=== PATIENT | female | born 1995 | race Caucasian/White ===

== ENCOUNTER 2016-09-30 21:11 | Emergency (ER) | payer OTHER ==
[~2016-09-30] VITALS: Ht 170.2 cm; Wt 60.0 kg
[2016-09-30 21:21] VITALS: TEMP 36.5; Ht 170.2 cm; Wt 60.0 kg
--- NOTE | 2016-09-30 21:59 | EMERGENCY ROOM VISIT NOTE ---
History Report prepared by Flory: Jb Caballero Under the Supervision of: Dr. Nedra Disla M.D. First contact with patient: 21:47 Chief Complaint: ALCOHOL OVERDOSE Stated Complaint: ETOH Nursing Triage Summary: DRINKING THIS AFTERNOON History of Present Illness This HPI is limited due to the alcohol intoxication of the patient. The patient is a 21 year old female who presents to the Emergency Room due to alcohol intoxication. She does admit to being at a green party and consuming alcohol, but denies any further drug use. The patient was brought to the emergency department via emergency services. She states that she did not call for the ambulance, but it showed up when she was walking back to her apartment form downw. She denies vomiting, but has vomit in her hair on exam. She denies any medical problems. Source of History: patient History Limited By: intoxication Position: other (Global) Quality: other (Alcohol ) Review of Systems HPI limited due to alcohol intoxication of the patient. Past Medical & Surgical Unobtainable secondary to intoxication. Family History Unobtainable secondary to intoxication. Social History Smoking Status: Never Smoker Marital Status: single Housing Status: lives with roommate Occupation Status: [employer] student Current/Historical Medications No Active Prescriptions or Reported Meds Allergies Coded Allergies: No Known Allergies (Unverified , 09/30/16) Physical Exam Vital Signs Date Time Temp Pulse Resp B/P Pulse Ox O2 Delivery O2 Flow Rate FiO2 10/01/16 04:17 98 18 105/59 98 10/01/16 02:49 95 18 98/61 98 Room Air 10/01/16 02:12 91 16 99/54 99 Room Air 10/01/16 01:03 90 10/01/16 00:42 92 16 96/48 95 Room Air 09/30/16 23:16 94 18 111/75 97 Room Air 09/30/16 22:37 94 20 98 Room Air 09/30/16 21:59 86 09/30/16 21:21 36.5 86 20 104/66 100 Room Air Physical Exam Vital signs reviewed. General: Odor of EtOH in the breath, disheveled 21-year-old female. No signs of trauma. Smelled like vomit on exam. HEENT: Mild scleral injection bilaterally, PERRLA, neck supple, dry mucous membranes. Cardiovascular: Regular rate and rhythm, no extra sounds. Pulmonary: Clear to auscultation bilaterally, normal work of breathing. Abdomen: Soft, nontender, nondistended, positive bowel sounds. Musculoskeletal: Upper and lower extremities atraumatic, no peripheral edema Skin: Warm, dry, no rash. Atraumatic. Neurologic: Patient is currently minimally verbal. Medical Decision & Procedures Laboratory Results Test 09/30/16 22:15 Ethyl Alcohol mg/dL 236.0 mg/dl (0-3) Laboratory results per my review. ED Course 2150: Past medical records reviewed. The patient was evaluated in room B4. A complete history and physical examination was performed. 2338: I reevaluated the patient at this time, she was resting comfortably in bed. 0043: I checked on the patient at this time, she was sleeping in bed. 0300: The patient is safe to go home on her own in a cab. The patient will be discharged. Medical Decision Differential diagnosis: Etiologies such as alcohol intoxication, toxicologic, infection, hypoglycemia, electrolyte abnormalities, cardiac sources, intracerebral event, neurologic, as well as others were entertained. This patient was evaluated and appeared to be in no significant distress. Physical examination is fairly unrevealing. The patient was placed on the senior quality engineer with aspiration precautions maintained. Laboratory work reveals a significant alcohol intoxication with an alcohol level of 236. The patient was observed until she reached a more sober state. She is released to the care of a friend. She will follow-up with [facility] as instructed and return to the ER for worsening of symptoms or any medical concerns. Impression Primary Impression: Alcohol use with intoxication Scribe Attestation The scribe's documentation has been prepared under my direction and personally reviewed by me in its entirety. I confirm that the note above accurately reflects all work, treatment, procedures, and medical decision making performed by me. Departure Information Dispostion Home / Self-Care Prescriptions No Active Prescriptions or Reported Meds Referrals No Doctor, Assigned (PCP) Patient Instructions My [facility]
[2016-10-01 04:17] VITALS: BP 105/59; PULSE 98; O2SAT 98
== END 2016-10-01 04:17 | disposition home or self-care (01) ==
LOC: C.EDB 21:11
DX: F10.129 Alcohol abuse with intoxication, unspecified (principal); Y90.7 Blood alcohol level of 200-239 mg/100 ml